=== PATIENT | female | born 1990 | race Caucasian/White ===

== ENCOUNTER 2020-04-30 09:12 | Emergency (ER) | payer OTHER ==
[2020-04-30 09:21] VITALS: RESP 18; TEMP 98.2
[2020-04-30] MEDS ORDERED: SODIUM CHLORIDE 0.9% 1,000 ML IV ONE (09:37)
--- NOTE | 2020-04-30 09:40 | ED ---
Female Urogenital HPI - General Chief complaint: Vaginal Bleeding Stated complaint: vag bleed 12wks preg Time Seen by Provider: 04/30/20 09:21 Source: patient, RN notes reviewed, old records reviewed Mode of arrival: ambulatory Limitations: no limitations - History of Present Illness Initial comments: Patient is a 29-year-old female, who presents emergency department today for concern for vaginal bleeding in . It is a . She is approximately 12 weeks. She states that she was was seen in the fertility clinic in [place] and was started on progesterone for this and finished it 2 weeks ago. Patient states that she's had an ultrasound at 11 weeks viable IUP. She denies any vaginal cramping or abdominal cramping. She states that she noticed some heavy bleeding only filling one pad starting last night. She denies any chest pain or shortness of breath. Patient is here visiting, she is originally from [place] and [place]. - Related Data Home Medications Medication Instructions Recorded Confirmed Cholecalciferol [Vitamin D3 (25 1,000 unit PO DAILY 04/30/20 04/30/20 Mcg = 1000 Iu)] Cider Vinegar [Apple Cider Vinegar] 300 mg PO DAILY 04/30/20 04/30/20 Qca-Bnlz-Blgso Acid 1 cap PO DAILY 04/30/20 04/30/20 [-U Capsule (formulary)] Allergies Allergy/AdvReac Type Severity Reaction Status Date / Time morphine Allergy Dyspnea Verified 04/30/20 11:00 Review of Systems ROS Statement: Those systems with pertinent positive or pertinent negative responses have been documented in the HPI. ROS Other: All systems not noted in ROS Statement are negative. Past Medical History Past Medical History: No Reported History History of Any Multi-Drug Resistant Organisms: None Reported Additional Past Surgical History / Comment(s): eye surgery, uterine surgery (unsure) Past Psychological History: No Psychological Hx Reported Smoking Status: Never smoker Past Alcohol Use History: None Reported Past Drug Use History: None Reported General Exam - General Exam Comments Initial Comments: Appearing 29-year-old female. No acute distress. Limitations: no limitations General appearance: alert, in no apparent distress Head exam: Present: atraumatic, normocephalic, normal inspection Eye exam: Present: normal appearance, PERRL, EOMI. Absent: scleral icterus, conjunctival injection, periorbital swelling ENT exam: Present: normal exam, mucous membranes moist Neck exam: Present: normal inspection. Absent: tenderness, meningismus, lymphadenopathy Respiratory exam: Present: normal lung sounds bilaterally. Absent: respiratory distress, wheezes, rales, rhonchi, stridor Cardiovascular Exam: Present: regular rate, normal rhythm, normal heart sounds. Absent: systolic murmur, diastolic murmur, rubs, gallop, clicks GI/Abdominal exam: Present: soft, normal bowel sounds. Absent: distended, tenderness, guarding, rebound, rigid External exam: Present: normal external exam, other (She declined pelvic exam after ultrasound was completed and showed subchorionic hemorrhage. She states she has no further bleeding.) Extremities exam: Present: normal inspection, full ROM, normal capillary refill. Absent: tenderness, pedal edema, joint swelling, calf tenderness Back exam: Present: normal inspection Neurological exam: Present: alert, oriented X3, CN II-XII intact Psychiatric exam: Present: normal affect, normal mood Skin exam: Present: warm, dry, intact, normal color. Absent: rash Course Vital Signs 04/30/20 04/30/20 09:17 11:03 Temperature 98.2 F Pulse Rate 104 H 79 Respiratory 18 18 Rate Blood Pressure 122/87 109/69 O2 Sat by Pulse 98 99 Oximetry Medical Decision Making - Medical Decision Making 2-year-old female presents return today for slight vaginal bleeding starting last night into today and told one pad. Patient states that she has no cramping or pain. Patient is Rh+. She is and is 12 weeks. All shunt today shows a viable IUP measuring 12 weeks 4 days. There is evidence of a some small subchorionic hemorrhage. She states she's had no further bleeding at this time. Patient's labs are reviewed and felt to the unremarkable. Discussed doing urine culture at this time. Patient is traveling back home to [place]. Advised Patient to not have any heavy lifting and advised follow-up with her RN DIALYSIS. Patient is agreeable treatment plan will comply. - Lab Data Result diagrams: 04/30/20 09:53 Lab Results 04/30/20 04/30/20 04/30/20 Range/Units 09:53 09:53 09:53 WBC 11.9 H (3.8-10.6) k/uL RBC 5.06 (3.80-5.40) m/uL Hgb 14.3 (11.4-16.0) gm/dL Hct 44.3 (34.0-46.0) % MCV 87.6 (80.0-100.0) fL MCH 28.2 (25.0-35.0) pg MCHC 32.2 (31.0-37.0) g/dL RDW 13.8 (11.5-15.5) % Plt Count 139 L (150-450) k/uL Neutrophils % 81 % Lymphocytes % 12 % Monocytes % 4 % Eosinophils % 2 % Basophils % 0 % Neutrophils # 9.6 H (1.3-7.7) k/uL Lymphocytes # 1.5 (1.0-4.8) k/uL Monocytes # 0.5 (0-1.0) k/uL Eosinophils # 0.2 (0-0.7) k/uL Basophils # 0.0 (0-0.2) k/uL PT 9.3 (9.0-12.0) sec INR 0.9 (<1.2) APTT 22.9 (22.0-30.0) sec Urine HCG, Qual Detected (Not Detectd) Blood Type Blood Type Recheck Bld Type Recheck Status 04/30/20 Range/Units 09:53 WBC (3.8-10.6) k/uL RBC (3.80-5.40) m/uL Hgb (11.4-16.0) gm/dL Hct (34.0-46.0) % MCV (80.0-100.0) fL MCH (25.0-35.0) pg MCHC (31.0-37.0) g/dL RDW (11.5-15.5) % Plt Count (150-450) k/uL Neutrophils % % Lymphocytes % % Monocytes % % Eosinophils % % Basophils % % Neutrophils # (1.3-7.7) k/uL Lymphocytes # (1.0-4.8) k/uL Monocytes # (0-1.0) k/uL Eosinophils # (0-0.7) k/uL Basophils # (0-0.2) k/uL PT (9.0-12.0) sec INR (<1.2) APTT (22.0-30.0) sec Urine HCG, Qual (Not Detectd) Blood Type O Positive Blood Type Recheck No Previous Record Bld Type Recheck Status ABR ONLY - Radiology Data Radiology results: report reviewed Ultrasound shows small subchorionic hemorrhage measuring up to 1.1 cm single live IUP with sonographic age of 12 weeks and 4 days estimated delivery date of 11/08/2020. Concordant with menstrual age. Disposition Clinical Impression: Subchorionic bleed Disposition: HOME SELF-CARE Condition: Good Instructions (If sedation given, give patient instructions): Subchorionic Hemorrhage (ED) Additional Instructions: Is advised follow-up with your RN DIALYSIS. Patient should not have any heavy lifting And no intercourse. Recommended contacting RN DIALYSIS for evaluation next 1-2 weeks. REturn to ED if any further bleeding or abdominal pain or cramping. Is patient prescribed a controlled substance at d/c from ED?: No Referrals: Nonstaff,Physician [Primary Care Provider] - 1-2 days Time of Disposition: 11:22
[2020-04-30 10:11] LABS: Basophils % (A) 0 %; Eosinophils # (A) 0.2 k/uL (0-0.7); Eosinophils % (A) 2 %; HCT 44.3 % (34.0-46.0); HGB 14.3 gm/dL (11.4-16.0); Lymphocytes # (A) 1.5 k/uL (1.0-4.8); Lymphocytes % (A) 12 %; MCH 28.2 pg (25.0-35.0); MCHC 32.2 g/dL (31.0-37.0); MCV 87.6 fL (80.0-100.0); Mean Platelet Volume 8.7; Monocytes # (A) 0.5 k/uL (0-1.0); Monocytes % (A) 4 %; Neutrophils # (A) 9.6 k/uL (1.3-7.7); Neutrophils % (A) 81 %; Platelet Count 139 k/uL (150-450); RBC 5.06 m/uL (3.80-5.40); RDW 13.8 % (11.5-15.5); WBC 11.9 k/uL (3.8-10.6)
[2020-04-30 10:24] LABS: INR 0.9 (<1.2); Partial Thromboplastin Time 22.9 sec (22.0-30.0); Prothrombin Time 9.3 sec (9.0-12.0)
--- NOTE | 2020-04-30 10:39 | US ---
EXAMINATION TYPE: Transabdominal DATE OF EXAM: 04/30/2020 10:28 AM COMPARISON: NONE CLINICAL HISTORY: pain. Pt states light vaginal bleeding that started last night, pt denies pain EXAM PERFORMED: Transabdominal (TA) EXAM MEASUREMENTS: GESTATIONAL AGE / DATING Physician Established: Not yet established Dates by LMP: (12 weeks/4 days) EDC: 11/08/2020 Dates by First Scan: No prior Dates by Current Scan for: (12 weeks/4 days) EDC: 11/08/2020 MATERNAL ANATOMY Uterus: 12.3 x 5.9 x 2.5 cm Right Ovary: 2.5 x 1.8 x 1.5 cm Left Ovary: 2.7 x 1.3 x 1.6 cm Post CDS / Adnexa: wnl Presence of free fluid: No Presence of corpus luteal cyst: No Presence of subchorionic bleed: Small possible 1.1 cm subchorionic hemorrhage on image 9/29. This is demonstrated as a crescentic hypoechoic area GESTATION / SURVEY CRL: 6.1 cm (12 weeks/4 days) MSD: wnl Heart Rate: 165 bpm Rhythm: Normal IUP: Live IUP Date of LMP: 02/02/2020 Beta HcG (if available): Not available at this time Single, live IUP/ Multiple Nabothian cysts within cervix IMPRESSION: Small subchorionic hemorrhage measuring up to 1.1 cm. Single live intrauterine with a sonog raphic age of 12 weeks and 4 days and estimated date of delivery of 11/08/2020, concordant with menst rual age.
[2020-04-30 11:06] VITALS: BP 109/69; PULSE 79
[2020-04-30 11:28] LABS: Amorphous Sediment,Urine Rare /hpf; Appearance,Urine Cloudy (Clear); Bacteria,Urine Occasional /hpf; Bilirubin,Urine Negative (Negative); Blood,Urine Large (Negative); Color,Urine Yellow; Glucose,Urine (UA) Negative (Negative); Ketones,Urine Negative (Negative); Leukocyte Esterase,Urine Moderate (Negative); Mucus,Urine Moderate /hpf; Nitrite,Urine Negative (Negative); PH, Urine 7.5 (5.0-8.0); Protein,Urine Trace (Negative); RBC,Urine 2 /hpf (0-5); Specific Gravity,Urine 1.023 (1.001-1.035); Squamous Epithelial Cell,Urine 1 /hpf (0-4); Urobilinogen,Urine <2.0 mg/dL (<2.0); WBC,Urine 8 /hpf (0-5)
== END 2020-04-30 11:29 | disposition home or self-care (01) ==
LOC: EC 09:12
DX: O20.9 Hemorrhage in early pregnancy, unspecified (principal); Z3A.12 12 weeks gestation of pregnancy; Z88.5 Allergy status to narcotic agent; Z79.899 Other long term (current) drug therapy
CPT/HCPCS: 36415; 76801; 81001; 81025; 85025; 85610; 85730; 86900; 86901; 87086; 96360; 99284